=== PATIENT | female | born 1935 | race Caucasian/White ===

== ENCOUNTER 2018-04-15 21:06 | Observation (INO) | payer MEDICARE ==
[~2018-04-15] VITALS: Ht 170.2 cm; Wt 58.4 kg
[~2018-04-15 21:06] MED LIST: BAYER CHEWABLE81 MG PO; PRAVACHOL20 MG PO
[2018-04-15] MEDS ORDERED: TIROSINT50 MCG PO (21:11)
[2018-04-15] MEDS ORDERED: TRIAMTERENE-HCT1 TA1 PO (21:11)
[2018-04-15] MEDS ORDERED: CALCIUM 250+D T1 TAB PO (21:11)
[2018-04-15] MEDS ORDERED: NORCO 7.5/325 T1 TA1 PO (21:12)
[2018-04-15 22:16] LABS: APPEARANCE HAZY (CLEAR); BILIRUBIN NEGATIVE (NEGATIVE); COLOR YELLOW (YELLOW); GLUCOSE NEGATIVE (NEGATIVE); KETONE SMALL mg/dL (NEGATIVE); NITRITE NEGATIVE (NEGATIVE); PROTEIN NEGATIVE (NEGATIVE); SPECIFIC GRAVITY 1.005 (1.005-1.020); UROBILINOGEN NORMAL (NORMAL)
[2018-04-15 22:18] LABS: WHITE CELLS - URINE 0-5 /hpf (0-5)
[2018-04-15 22:19] LABS: BACTERIA FEW /hpf (NONE SEEN)
[2018-04-15 22:36] LABS: BASOPHILS 0.1 % (0-2); EOSINOPHILS 0.9 % (0-7); HEMATOCRIT 35.9 % (36.0-48.0); IMMATURE GRANULOCYTES 0.2 % (0-5); LYMPHOCYTES 12.2 % (15-50); MCH 29.8 pg (26.0-34.0); MCHC 33.4 g/dL (31.0-37.0); MCV 89.1 fL (80.0-100.0); MEAN PLATELET VOLUME 10.1 fL (7.4-10.4); MONOCYTES 7.9 % (2-11); NEUTROPHILS 78.7 % (40-80); PLATELET COUNT 204 10x3/uL (130-400); RBC 4.03 10x6/uL (4.00-5.40); RDW 13.4 % (11.5-14.5); WBC 8.4 10x3/uL (4.8-10.8)
[2018-04-15 22:55] LABS: ALBUMIN 3.2 g/dL (3.4-5.0); ANION GAP 10.4 mmol/L (8-16); BILIRUBIN - TOTAL 1.03 mg/dL (0.2-1.3); CALCIUM 8.9 mg/dL (8.5-10.1); CARBON DIOXIDE 28.2 mmol/L (21.0-32.0); CREATININE - SERUM 1.2 mg/dL (0.6-1.3); POTASSIUM - SERUM 3.6 mmol/L (3.5-5.1); PROTEIN - SERUM 6.7 g/dL (6.4-8.2)
[2018-04-16] MEDS ORDERED: SYNTHROID50 MCG PO (00:12)
[2018-04-16 01:26] VITALS: BP 138/69
[2018-04-16 04:00] VITALS: BP 128/70
[2018-04-16 06:54] LABS: BASOPHILS 0.1 % (0-2); EOSINOPHILS 0.2 % (0-7); HEMATOCRIT 36.4 % (36.0-48.0); HEMOGLOBIN 12.1 g/dL (12-16); IMMATURE GRANULOCYTES 0.3 % (0-5); LYMPHOCYTES 7.1 % (15-50); MCHC 33.2 g/dL (31.0-37.0); MCV 90.1 fL (80.0-100.0); MEAN PLATELET VOLUME 10.4 fL (7.4-10.4); MONOCYTES 4.7 % (2-11); NEUTROPHILS 87.6 % (40-80); PLATELET COUNT 196 10x3/uL (130-400); RBC 4.04 10x6/uL (4.00-5.40); RDW 13.7 % (11.5-14.5); WBC 8.8 10x3/uL (4.8-10.8)
[2018-04-16 07:53] LABS: ALBUMIN 3.3 g/dL (3.4-5.0); ANION GAP 10.6 mmol/L (8-16); BILIRUBIN - TOTAL 0.86 mg/dL (0.2-1.3); CALCIUM 8.7 mg/dL (8.5-10.1); CARBON DIOXIDE 31.8 mmol/L (21.0-32.0); CREATININE - SERUM 1.1 mg/dL (0.6-1.3); MAGNESIUM - SERUM 2.4 mg/dL (1.8-2.4); PHOSPHOROUS 3.8 mg/dL (2.5-4.9); POTASSIUM - SERUM 3.4 mmol/L (3.5-5.1); PROTEIN - SERUM 6.4 g/dL (6.4-8.2)
[2018-04-16 08:30] VITALS: BP 129/66
[2018-04-16 12:01] VITALS: BP 141/70
[2018-04-16 13:39] VITALS: Ht 170.2 cm; Wt 58.4 kg
[2018-04-16 16:14] VITALS: BP 137/70
[2018-04-16 20:00] VITALS: BP 145/67
[2018-04-17] VITALS: BP 120/62
[2018-04-17 04:00] VITALS: BP 136/79
[2018-04-17 07:59] VITALS: BP 141/79
[2018-04-17 11:06] VITALS: BP 145/83
== END 2018-04-17 16:00 | disposition home or self-care (01) ==
LOC: D.ER 21:06 → OBSVTIME 23:23 → D.EDHOLD 23:23 → D.M2 23:23
PROVIDERS: Family Medicine
DX: K56.7 Ileus, unspecified (principal); M54.5 Low back pain; K59.03 Drug induced constipation; T40.605A Adverse effect of unspecified narcotics, initial encounter

== ENCOUNTER 2020-02-06 09:29 | Emergency (ER) | payer MEDICARE, MEDICAID ==
[~2020-02-06] VITALS: Ht 170.2 cm; Wt 59.1 kg
[~2020-02-06 09:29] MED LIST changes: +CALCIUM 250+D T1 TAB PO; +NORCO 7.5/325 T1 TA1 PO; +SYNTHROID50 MCG PO; +TIROSINT50 MCG PO; +TRIAMTERENE-HCT1 TA1 PO
[2020-02-06 09:36] VITALS: Ht 170.2 cm; Wt 59.1 kg
[2020-02-06 10:53] LABS: BASOPHILS 0.3 % (0-2); EOSINOPHILS 0.7 % (0-7); HEMATOCRIT 41.2 % (36.0-48.0); HEMOGLOBIN 13.8 g/dL (12-16); IMMATURE GRANULOCYTES 0.1 % (0-5); MCHC 33.5 g/dL (31.0-37.0); MCV 89.6 fL (80.0-100.0); MEAN PLATELET VOLUME 10.1 fL (7.4-10.4); MONOCYTES 8.8 % (2-11); NEUTROPHILS 81.1 % (40-80); PLATELET COUNT 223 10x3/uL (130-400); RDW 13.5 % (11.5-14.5); WBC 7.4 10x3/uL (4.8-10.8)
[2020-02-06 11:06] LABS: ANION GAP 9.8 mmol/L (8-16); CALCIUM 9.1 mg/dL (8.5-10.1); CARBON DIOXIDE 29.4 mmol/L (21.0-32.0); CREATININE - SERUM 1.5 mg/dL (0.6-1.3); POTASSIUM - SERUM 3.2 mmol/L (3.5-5.1)
[2020-02-06 11:12] LABS: ALBUMIN 3.5 g/dL (3.4-5.0); BILIRUBIN - TOTAL 0.69 mg/dL (0.2-1.3); PROTEIN - SERUM 6.9 g/dL (6.4-8.2)
[2020-02-06 11:47] LABS: INR 0.93 (0.85-1.17); PROTIME 12.4 SECONDS (11.6-15.0)
[2020-02-06] MEDS ORDERED: MIRALAX17 GM PO (12:24)
[2020-02-06] MEDS ORDERED: ULTRAM50 MG PO (12:25)
[2020-02-06 12:31] LABS: BACTERIA FEW /hpf (NEGATIVE); BILIRUBIN NEGATIVE (NEGATIVE); EPITHELIAL CELLS OCC /hpf (0-5); GLUCOSE NEGATIVE (NEGATIVE); KETONE SMALL mg/dL (NEGATIVE); NITRITE NEGATIVE (NEGATIVE); RED CELLS - URINE OCC /hpf (0-5); SPECIFIC GRAVITY 1.015 (1.005-1.020); UROBILINOGEN NORMAL (NORMAL); WHITE CELLS - URINE RARE /hpf (NEGATIVE)
[2020-02-06 13:07] VITALS: BP 180/92
== END 2020-02-06 13:16 | disposition home or self-care (01) ==
LOC: D.ER 09:29
PROVIDERS: Family Medicine
DX: M54.5 Low back pain (principal); S32.049A Unspecified fracture of fourth lumbar vertebra, initial encounter for closed fracture; S22.089A Unspecified fracture of T11-T12 vertebra, initial encounter for closed fracture; W19.XXXA Unspecified fall, initial encounter; Y93.9 Activity, unspecified; Y92.9 Unspecified place or not applicable; M25.551 Pain in right hip; E07.9 Disorder of thyroid, unspecified; I10 Essential (primary) hypertension

== ENCOUNTER 2020-02-07 19:36 | Inpatient (IN) | payer MEDICARE, MEDICAID ==
[~2020-02-07] VITALS: Ht 167.6 cm; Wt 54.1 kg
[~2020-02-07 19:36] MED LIST changes: +MIRALAX17 GM PO; +ULTRAM50 MG PO
--- NOTE | 2020-02-07 20:06 | NUR ---
PATIENT IN WITH C/O CONSTIPATION, WEAKNESS AND BACK PAIN, STATES SHE FELL LAST THURSDAY AND THE PAIN HAS GOTTEN WORSE. NO OBVIOUSE DEFORMITY
[2020-02-07 20:52] LABS: BASOPHILS 0.3 % (0-2); EOSINOPHILS 0.4 % (0-7); HEMATOCRIT 42.7 % (36.0-48.0); HEMOGLOBIN 14.2 g/dL (12-16); IMMATURE GRANULOCYTES 0.3 % (0-5); LYMPHOCYTES 12.9 % (15-50); MCH 30.2 pg (26.0-34.0); MCHC 33.3 g/dL (31.0-37.0); MCV 90.9 fL (80.0-100.0); MEAN PLATELET VOLUME 9.8 fL (7.4-10.4); MONOCYTES 9.4 % (2-11); NEUTROPHILS 76.7 % (40-80); PLATELET COUNT 238 10x3/uL (130-400); WBC 6.9 10x3/uL (4.8-10.8)
--- NOTE | 2020-02-07 20:57 | NUR ---
MEDICATION NOT SCANNED DUE TO COMPUTER NOT WORKING.
[2020-02-07 20:58] LABS: ANION GAP 9.6 mmol/L (8-16); CALCIUM 9.6 mg/dL (8.5-10.1); CARBON DIOXIDE 31.8 mmol/L (21.0-32.0); CREATININE - SERUM 1.7 mg/dL (0.6-1.3); INR 0.93 (0.85-1.17); POTASSIUM - SERUM 3.4 mmol/L (3.5-5.1); PROTIME 12.5 SECONDS (11.6-15.0)
[2020-02-07 21:04] LABS: ALBUMIN 3.6 g/dL (3.4-5.0); BILIRUBIN - TOTAL 0.85 mg/dL (0.2-1.3); PROTEIN - SERUM 7.4 g/dL (6.4-8.2)
--- NOTE | 2020-02-07 22:10 | NUR ---
UNABLE TO SCAN NS IN ROOM, COMPUTER NOT WORKING
--- NOTE | 2020-02-07 22:30 | NUR ---
ADMITTED TO ROOM FROM ER ALERT AND ORIENTIATED, REPORTS FELL AT HOME THURSDAY AND BACK HAS BEEN HURTING EVER SINCE, SEE ASSESSMENT, ORIENTIATED TO ROOM CALL LIGHT IN REACH
[2020-02-08 00:19] VITALS: BP 183/84; BMI 21.0
[2020-02-08 04:32] LABS: BASOPHILS 0.5 % (0-2); EOSINOPHILS 1.4 % (0-7); HEMATOCRIT 39.6 % (36.0-48.0); IMMATURE GRANULOCYTES 0.2 % (0-5); LYMPHOCYTES 15.6 % (15-50); MCH 29.8 pg (26.0-34.0); MCHC 32.8 g/dL (31.0-37.0); MCV 90.8 fL (80.0-100.0); MONOCYTES 11.8 % (2-11); NEUTROPHILS 70.5 % (40-80); PLATELET COUNT 249 10x3/uL (130-400); RBC 4.36 10x6/uL (4.00-5.40); WBC 5.5 10x3/uL (4.8-10.8)
[2020-02-08 04:48] LABS: APTT 34.9 SECONDS (22.8-39.4); INR 0.96 (0.85-1.17); PROTIME 12.7 SECONDS (11.6-15.0)
[2020-02-08 04:53] LABS: CARBON DIOXIDE 31.2 mmol/L (21.0-32.0); CREATININE - SERUM 1.4 mg/dL (0.6-1.3); MAGNESIUM - SERUM 2.1 mg/dL (1.8-2.4); PHOSPHOROUS 4.6 mg/dL (2.5-4.9)
[2020-02-08 04:55] LABS: POTASSIUM - SERUM 4.2 mmol/L (3.5-5.1)
[2020-02-08 06:04] VITALS: BP 172/90
--- NOTE | 2020-02-08 07:57 | NUR ---
PT RESTING QUIETLY IN BED. REPORTS PAIN 4/10 AT THIS TIME. IV TO LEFT WRIST WITH NS @ 75ML/HR INFUSING VIA PUMP. SITE WITHOUT REDNESS OR EDEMA. DENIES FURTHER NEEDS A THIS TIME. CL WITHIN REACH. ENCOURAGED TO CALL WITH NEEDS. CONTINUE POC
[2020-02-08 08:00] VITALS: BP 181/92
--- NOTE | 2020-02-08 10:00 | NUR ---
PT RESTING IN BED READING. NO ACUTE DISTRESS NOTED AT THIS TIME. DENIES FURTHER NEEDS AT THIS TIME. CL WITHIN REACH. ENCOURAGED TO CALL WITH NEEDS.
--- NOTE | 2020-02-08 11:51 | NUR ---
PT RESTING QUIETLY IN BED. RESP EVEN AND UNLABORED. DENIES PAIN OR FURTHER NEEDS AT THIS TIME. CL WITHIN REACH. ENCOURAGED TO CALL WITH NEEDS.
[2020-02-08 12:00] VITALS: BP 158/61
--- NOTE | 2020-02-08 12:43 | NUR ---
PT SITTING UP IN BED READING. NO ACUTE DISTRESS NOTED. CONTINUES TO DENY PAIN AT THIS TIME. DENIES FURTHER NEEDS AT THIS TIME. CL WITHIN REACH. ENCOURAGED TO CALL WITH NEEDS.
[2020-02-08 14:04] VITALS: Ht 167.6 cm; Wt 54.1 kg
--- NOTE | 2020-02-08 14:57 | NUR ---
PT INSTRUCTED ON NEED FOR UA. PT VOICES UNDERSTANDING.
[2020-02-08 16:00] VITALS: BP 149/77
[2020-02-08 16:32] LABS: BILIRUBIN NEGATIVE (NEGATIVE); GLUCOSE NEGATIVE (NEGATIVE); KETONE NEGATIVE (NEGATIVE); NITRITE NEGATIVE (NEGATIVE); UROBILINOGEN NORMAL (NORMAL)
[2020-02-08 20:00] VITALS: BP 149/80
[2020-02-09 04:00] VITALS: BP 164/88
[2020-02-09 04:29] LABS: BASOPHILS 0.4 % (0-2); EOSINOPHILS 3.5 % (0-7); HEMATOCRIT 37.5 % (36.0-48.0); HEMOGLOBIN 12.3 g/dL (12-16); IMMATURE GRANULOCYTES 0.2 % (0-5); LYMPHOCYTES 24.8 % (15-50); MCH 29.9 pg (26.0-34.0); MCHC 32.8 g/dL (31.0-37.0); MONOCYTES 11.5 % (2-11); NEUTROPHILS 59.6 % (40-80); PLATELET COUNT 227 10x3/uL (130-400); RBC 4.12 10x6/uL (4.00-5.40); RDW 13.3 % (11.5-14.5); WBC 5.4 10x3/uL (4.8-10.8)
[2020-02-09 04:43] LABS: ANION GAP 9.1 mmol/L (8-16); CALCIUM 8.3 mg/dL (8.5-10.1); CARBON DIOXIDE 32.5 mmol/L (21.0-32.0); CREATININE - SERUM 1.2 mg/dL (0.6-1.3); POTASSIUM - SERUM 3.6 mmol/L (3.5-5.1)
[2020-02-09 08:00] VITALS: BP 161/84
--- NOTE | 2020-02-09 08:26 | NUR ---
PT RESTING QUIETLY IN BED. RESP EVEN AND UNLABORED. DENIES PAIN THIS AM. IV TO LEFT WRIST WITH NS @ 75ML/HR INFUSING VIA PUMP. SITE WITHOUT REDNESS OR EDEMA. DENIES FURTHER NEEDS AT THIS TIME. CL WITHIN REACH. ENCOURAGED TO CALL WITH NEEDS. CONTINUE POC
[2020-02-09 12:00] VITALS: BP 161/72
[2020-02-09 16:00] VITALS: BP 157/77
[2020-02-09 20:00] VITALS: BP 147/77
[2020-02-10] VITALS: BP 141/75
[2020-02-10 04:00] VITALS: BP 158/62
[2020-02-10 05:14] LABS: BASOPHILS 0.1 % (0-2); EOSINOPHILS 0.3 % (0-7); HEMATOCRIT 37.4 % (36.0-48.0); HEMOGLOBIN 12.2 g/dL (12-16); IMMATURE GRANULOCYTES 0.3 % (0-5); LYMPHOCYTES 9.4 % (15-50); MCH 29.5 pg (26.0-34.0); MCHC 32.6 g/dL (31.0-37.0); MCV 90.3 fL (80.0-100.0); MEAN PLATELET VOLUME 9.6 fL (7.4-10.4); MONOCYTES 9.6 % (2-11); NEUTROPHILS 80.3 % (40-80); PLATELET COUNT 223 10x3/uL (130-400); RBC 4.14 10x6/uL (4.00-5.40); RDW 13.1 % (11.5-14.5)
[2020-02-10 05:28] LABS: WBC 7.9 10x3/uL (4.8-10.8)
[2020-02-10 05:44] LABS: ANION GAP 8.5 mmol/L (8-16); CALCIUM 8.7 mg/dL (8.5-10.1); CARBON DIOXIDE 30.2 mmol/L (21.0-32.0); POTASSIUM - SERUM 3.7 mmol/L (3.5-5.1)
[2020-02-10 08:00] VITALS: BP 169/82
--- NOTE | 2020-02-10 08:41 | NUR ---
PT RESTING QUIETLY IN BED READING A BOOK. RESP EVEN AND UNLABORED. REPORTS PAIN 4/10 AT THIS TIME. PT IS A LITTLE TEARFUL AT TIMES SHE VOICES MISSING CONTACT WITH FAMILY. IV TO LEFT FOREARM WITH NS @ 75/ML/HR INFUSING VIA PUMP. SITE WITHOUT REDNESS OR EDEMA. DENIES FURTHER NEEDS AT THIS TIME. CL WITHIN REACH. ENCOURAGED TO CALL WITH NEEDS. CONTINUE POC
--- NOTE | 2020-02-10 09:26 | NUR ---
REHAB PRESCREENING Rehab referral received and chart reviewed. This patient is awaiting recommendations from Dr. Park. PT has placed this patient on hold. This patient has [facility] and will require an OT evaluation as well when this patient is able. Rehab will continue to follow. Thank you for this referral! Melanie Osborne, CATTLE CARE WORKER Rehab PD
--- NOTE | 2020-02-10 10:53 | NUR ---
STAFF FROM [place] HERE TO FIT PT WITH TLSO BRACE.
[2020-02-10 12:00] VITALS: BP 129/69
[2020-02-10 16:00] VITALS: BP 166/78
--- NOTE | 2020-02-10 16:25 | NUR ---
OT NOTE: PT COMPLETED FACE/HAND HYGIENE WITH SETUP. PT COMPLETED POSITIONING IN BED WITH SBA. [phone] THANK YOU,CARTER MCHUGH
--- NOTE | 2020-02-10 19:45 | NUR ---
PT SITTING UP IN BED WITHOUT DISTRESS, AOX4. IV LEFT FA INFUSING NS @ 75. REFUSES SCDS. PROVIDED ICE WATER. DENIES OTHER NEEDS AT THIS TIME. CL IN REACH, WILL CTM
[2020-02-10 20:00] VITALS: BP 154/77
[2020-02-11] VITALS: BP 176/85
--- NOTE | 2020-02-11 00:58 | NUR ---
PT STATES PAIN IN BACK 04/13, GAVE NORCO ORDERED. DENIES OTHER NEEDS, WILL CYM
[2020-02-11 04:00] VITALS: BP 162/86
[2020-02-11 07:00] VITALS: BP 154/78
[2020-02-11 07:05] LABS: ANION GAP 8.2 mmol/L (8-16); CALCIUM 8.8 mg/dL (8.5-10.1); CARBON DIOXIDE 33.3 mmol/L (21.0-32.0); CREATININE - SERUM 1.2 mg/dL (0.6-1.3); POTASSIUM - SERUM 3.5 mmol/L (3.5-5.1)
[2020-02-11 07:39] LABS: HEMATOCRIT 38.2 % (36.0-48.0); MCH 30.7 pg (26.0-34.0); MCV 90.1 fL (80.0-100.0); MEAN PLATELET VOLUME 9.9 fL (7.4-10.4); NEUTROPHILS 66.5 % (40-80); PLATELET COUNT 234 10x3/uL (130-400); RBC 4.24 10x6/uL (4.00-5.40); RDW 13.4 % (11.5-14.5); WBC 7.8 10x3/uL (4.8-10.8)
[2020-02-11 11:00] VITALS: BP 167/84
--- NOTE | 2020-02-11 11:48 | NUR ---
resting in bed, up with pt in halls, medicated x1 for pain, cont to monitor and awaiting placement, updated family
[2020-02-11 15:00] VITALS: BP 180/88
[2020-02-11 20:01] VITALS: BP 164/79
--- NOTE | 2020-02-11 21:10 | NUR ---
HS MEDICATIONS GIVEN. GAVE MIRALAX MIXED WITH WATER. WILL CONTINUE TO MONITOR FOR NEEDS.
--- NOTE | 2020-02-11 21:20 | NUR ---
ASSISTED PT UP TO RESTROOM...VERY WEAK AND UNSTEADY.
[2020-02-12] VITALS: BP 170/78
[2020-02-12 04:00] VITALS: BP 170/85
[2020-02-12 05:58] LABS: ANION GAP 10.5 mmol/L (8-16); CALCIUM 8.5 mg/dL (8.5-10.1); POTASSIUM - SERUM 3.5 mmol/L (3.5-5.1)
[2020-02-12 06:05] LABS: HEMOGLOBIN 13.1 g/dL (12-16); LYMPHOCYTES 21.7 % (15-50); MCH 30.3 pg (26.0-34.0); MCHC 33.6 g/dL (31.0-37.0); MCV 90.3 fL (80.0-100.0); MEAN PLATELET VOLUME 9.9 fL (7.4-10.4); NEUTROPHILS 67.3 % (40-80); PLATELET COUNT 254 10x3/uL (130-400); RBC 4.32 10x6/uL (4.00-5.40); RDW 13.2 % (11.5-14.5); WBC 6.9 10x3/uL (4.8-10.8)
--- NOTE | 2020-02-12 07:30 | NUR ---
RECEIVED PT FROM MANIFEST CLERK. UPON ENTERING PT IS ALERT AND ORIENTED X4. ROOM AIR, LEFT FOREARM IV THAT IS SALINE LOCKED. HISTORY OF FALLS, T3 AND L4 COMPRESSION FRACTURES, PLANS FOR A KYPHOPLASTY IN THE FUTURE. BED ALARM, YELLOW GOWN AND BLUE SOCKS PER FALL PRECAUTION PROTOCOL. PT IS UP WITH ASSIST. HAS TLSO BRACE, REFUSES TO WEAR IT. FENTANYL PATCH. DENIES ANY NEEDS. BED IN LOWEST POSITION, BED RAILS X2, CALL LIGHT WITHIN REACH. WILL CONTINUE TO MONITOR.
[2020-02-12 08:32] VITALS: BP 126/68
--- NOTE | 2020-02-12 08:54 | NUR ---
ADMINISTERED MORNING MEDICATION, NO DIFFICULTY. SUPPOSITORY FOR CONSTIPATION. NORCO FOR BACK PAIN 04/13. ASSESSMENT PERFORMED AT THIS TIME. HELPED PT AMBULATE TO BATHROOM AND BACK PRIOR TO SUPPOSITORY PLACEMENT. DENIES ANY NEEDS. BED IN LOWEST POSITION, BED RAILS X1, CALL LIGHT WITHIN REACH. WILL CONTINUE TO MONITOR.
--- NOTE | 2020-02-12 09:53 | NUR ---
PT HAS HAD BOWEL MOVEMENT SINCE SUPPOSITORY PLACEMENT.
--- NOTE | 2020-02-12 12:12 | NUR ---
REMOVED FENTANLY PATCH FROM RIGHT SHOULDER AND PLACED NEW ONE ON LEFT SHOULDER. PT UPRIGHT IN BED EATING LUNCH. DENIES ANY NEEDS AT THIS TIME. WILL CONTINUE TO MONITOR.
[2020-02-12 12:40] VITALS: BP 160/94
--- NOTE | 2020-02-12 16:00 | NUR ---
SPOKE WITH PT DAUGHTER REGARDING STATUS. PT STATES SHE LIVES ALONE AND AMBULATES AT HOME WITHOUT ASSIST AND HAS PROVEN THE ABILITY TO DO SO IN HER OWN ROOM AND WITH PHYSICAL THERAPY. DENIES ANY NEEDS. WILL CONTINUE TO MONITOR.
--- NOTE | 2020-02-12 16:40 | NUR ---
I have reviewed this patient and I concur with the Shift Assessment completed by the Licensed Practical Nurse today this shift.
--- NOTE | 2020-02-12 17:27 | NUR ---
ADMINISTERED PRN NORCO FOR BACK PAIN 07/14. PT IS RECLINED IN BED, APPEARS UNCOMFORTABLE AND IN PAIN. DENIES ANY OTHER COMFORT MEASURES. WILL CONTINUE TO MONITOR.
[2020-02-12 17:37] VITALS: BP 178/93
--- NOTE | 2020-02-12 19:00 | NUR ---
BEDSIDE REPORT RECEIVED AND CARE OF PT ASSUMED. PT LYING IN LOW DEL CID'S POSITION WITH EYES CLOSED. IV TO LEFT FA SALINE LOCKED. WILL MONITOR FOR NEEDS.
[2020-02-12 20:01] VITALS: BP 188/89
--- NOTE | 2020-02-12 20:53 | NUR ---
HS MEDICATIONS GIVEN. WILL CONTINUE TO MONITOR FOR NEEDS.
[2020-02-13] VITALS: BP 178/90
[2020-02-13 04:00] VITALS: BP 180/84
[2020-02-13 04:56] LABS: CALCIUM 8.9 mg/dL (8.5-10.1); CARBON DIOXIDE 30.1 mmol/L (21.0-32.0); POTASSIUM - SERUM 3.1 mmol/L (3.5-5.1)
[2020-02-13 05:05] LABS: LYMPHOCYTES 18.6 % (15-50); MCHC 33.3 g/dL (31.0-37.0); MCV 89.9 fL (80.0-100.0); MEAN PLATELET VOLUME 9.5 fL (7.4-10.4); NEUTROPHILS 69.3 % (40-80); PLATELET COUNT 266 10x3/uL (130-400); RBC 4.34 10x6/uL (4.00-5.40); RDW 13.3 % (11.5-14.5); WBC 7.8 10x3/uL (4.8-10.8)
[2020-02-13 08:07] VITALS: BP 151/79
--- NOTE | 2020-02-13 08:31 | NUR ---
PT LYING IN BED, NO S/SX OF DISTRESS, BED IN LOWEST POSITION, CL IN REACH, IV IN LT FA SL, BED ALARM ON, PT HAS TLSO BRACE REFUSED TO WEAR. NO NEEDS AT THIS TIME CONTINUE WITH PLAN OF CARE
--- NOTE | 2020-02-13 09:36 | NUR ---
I have reviewed this patient and I concur with the Shift Assessment completed by the Licensed Practical Nurse today this shift.
--- NOTE | 2020-02-13 09:41 | NUR ---
PT LYING IN BED, ADMINISTERED SCHEDULED MEDICATIONS WELL PRN TO PT, PT INQUIRED ON PLAN OF CARE TODAY AND IF ANYTHING HAS CHANGED, EXPLAINED THAT WE ARE STILL WAITING ON DR TO MAKE ROUNDS TO SEE WHAT AND IF ANY PLANS HAVE CHANGED, PT VERBALIZED UNDERSTANDING,CONTINUE WITH PLAN OF CARE
--- NOTE | 2020-02-13 10:44 | NUR ---
AFTER PT WAS GIVEN K+ FOR EP PT K+ IS 3.8 AFTER REDRAW, NO OTHER NEEDS VOICED BY PT AT THIS TIME, CONTINUE WITH PLAN OF CARE
[2020-02-13 11:50] VITALS: BP 144/74
--- NOTE | 2020-02-13 12:57 | NUR ---
PT WAS GIEVN BATH ABOUT 11 AND REQUESTED PAIN MEDICATION, INFORMED PT THAT HER PRN MEDICATION WAS GIVEN WITH MORNING MEDS AND TOO EARLY FOR ME TO ADMINISTER MEDICATION, NURSE PRACTIONER CAME AND PLACED ORDER FOR ONE TIME DOSE OF TRAMADOL, ADMNISTERED SCHEDULED MED AND PT STATED PAIN AT A 10 FROM 0-10, WILL REASSESS PT AFTER A BIT. NO OTHER NEEDS VOICED AT THIS TIME, CL IN REACH CONTINUE WITH PLAN OF CARE
--- NOTE | 2020-02-13 13:30 | NUR ---
Nutrition follow-up: Diet: Regular PO intake ~90% average of meals Labs reviewed +BM Wt: 129# PO intake remains good at this time Awaiting rehab RDN following.
--- NOTE | 2020-02-13 13:34 | MORECARE ---
CASE MANAGEMENT DISCHARGE SUMMARY PATIENT: GINGER BENSON UNIT: [id number] ADM DATE: 02/07/20 AGE: 85 : 33 SEX: F ROOM/BED: D.2239 AUTHOR: HIRADOC PHYSICIAN: REFERRING PHYSICIAN: SAHARA LOVE MD DATE OF SERVICE: 02/13/20 Discharge Plan Patient Name: GINGER BENSON Facility: [facility]:[place] : 1935 Planned Disposition: Inpatient Rehab Anticipated Discharge Date: Discharge Date: Expected LOS: Initial Reviewer: [id number] Initial Review Date: 02/13/2020 Generated: 02/13/20 2:34 pm Comments DCP- Discharge Planning Updated by [email or web address]: Coreen Pina on 02/13/20 12:[address] Patient Name: GINGER BENSON Admission Status: ER Accout number: [id number] Admission Date: 02-07-2020 : 1935 Admission Diagnosis:DORSALGIA, UNSPECIFIED Attending: SAHARA LOVE Current LOS: 6 Anticipated DC Date: Planned Disposition: Inpatient Rehab Primary Insurance: [employer] ADV Discharge Planning Comments: CM met with patient at bedside after explaining CM role and obtaining verbal consent. CM discussed availability / needs of home health, REHAB and medical equipment. STEVE SIGNED FOR IPRH AND IMM SIGNED. CM TO FOLLOW AND ASSIST NEEDED. Kiln Car Unloader: Coreen Pina DCPIA - Discharge Planning Initial Assessment Updated by [id number]: Coreen Pina on 02/13/20 1:31 pm * Is the patient Alert and Oriented? Yes Coverage Notice Reviewer: [email or web address] Pina Notice Issued Date-Time: 02/13/2020 13:32 Notice Type: IM Discharge Notice Notice Delivered To: Patient Relationship to Patient: Computer Systems Hardware Analyst Name: Delivery Method: HAND - Hand Delivered Shy Days: Prior Verbal Notification: Recipient Understood Notice: Yes Recipient Signature: Yes Med Rec Note Co-signed by Attending: Coverage Notice Comment: Reviewer: [id number] John Pina Notice Issued Date-Time: 02/13/2020 13:32 Notice Type: Patient Choice Letter Notice Delivered To: Patient Relationship to Patient: Computer Systems Hardware Analyst Name: Delivery Method: HAND - Hand Delivered Shy Days: Prior Verbal Notification: Recipient Understood Notice: Yes Recipient Signature: Yes Med Rec Note Co-signed by Attending: Coverage Notice Comment: [facility] Patient Name: GINGER BENSON Page [phone] at 1334 All edits/amendments must be made on the electronic document DICTATION DATE: 02/13/201333 TEACHER OF THE SIGHT IMPAIRED: YANN 02/13/20 1334 RPT#: [id number] DC DATE: STATUS: ADM IN [facility] [address] [place] [address] END OF REPORT
--- NOTE | 2020-02-13 16:04 | NUR ---
OT NOTE: PT REQUIRED MAX A TO LUCIANO/DOFF BACK BRACE. PT COMPLETED SUPINE TO SIT WITH SBA. PT COMPLETED SIT TO STAND WITH CGA. PT COMPLETED FACE HYGIENE AT EOB WITH SETUP. [phone] THANK YOU,VIVIANE LAI
[2020-02-13 16:06] VITALS: BP 143/77
--- NOTE | 2020-02-13 19:00 | NUR ---
BEDSIDE REPORT RECEIVED AND CARE OF PT ASSUMED. PT LYING IN HIGH DEL CID'S POSITION. STATES NO PAIN AT THIS TIME. IV TO LEFT FA SALINE LOCKED. BED ALARM IN PLACE. WILL MONITOR FOR NEEDS.
[2020-02-13 19:38] VITALS: BP 180/92
--- NOTE | 2020-02-13 20:00 | NUR ---
HS MEDICATIONS GIVEN TO INCLUDE NORCO PER REQUEST FOR PAIN. WILL CONTINUE TO MONITOR FOR NEEDS.
[2020-02-14 00:10] VITALS: BP 180/80
[2020-02-14 04:00] VITALS: BP 165/79
[2020-02-14 04:48] LABS: HEMOGLOBIN 12.6 g/dL (12-16); LYMPHOCYTES 20.8 % (15-50); MCHC 33.2 g/dL (31.0-37.0); MCV 90.5 fL (80.0-100.0); MEAN PLATELET VOLUME 9.9 fL (7.4-10.4); NEUTROPHILS 65.4 % (40-80); PLATELET COUNT 258 10x3/uL (130-400); RDW 13.6 % (11.5-14.5); WBC 5.9 10x3/uL (4.8-10.8)
[2020-02-14 05:02] LABS: ALBUMIN 2.9 g/dL (3.4-5.0); ANION GAP 11.1 mmol/L (8-16); BILIRUBIN - TOTAL 0.58 mg/dL (0.2-1.3); CALCIUM 8.7 mg/dL (8.5-10.1); CARBON DIOXIDE 30.5 mmol/L (21.0-32.0); POTASSIUM - SERUM 3.6 mmol/L (3.5-5.1)
[2020-02-14 09:03] VITALS: BP 162/85
--- NOTE | 2020-02-14 11:28 | NUR ---
I have reviewed this patient and I concur with the Shift Assessment completed by the Licensed Practical Nurse today this shift.
--- NOTE | 2020-02-14 12:22 | NUR ---
ASSISTED PT FROM BATHROOM BACK TO BED AND PT STATED SHE NEEDED PAIN MEDICATION. PT STATED HER PAIN GETS BAD WHEN SHE MOVES, TOO SOON FOR PT TO HAVE CHRISTINA, ADMINISTERED PRN TRAMADOL FOR PT. NO OTHER NEEDS AT THIS TIME, CONTINUE WITH PLAN OF CARE
[2020-02-14 12:48] VITALS: BP 153/71
--- NOTE | 2020-02-14 14:32 | NUR ---
Buttocks with blanchable redness. Pt is up ambulating in room. Wound care monitoring as needed.
--- NOTE | 2020-02-14 14:44 | NUR ---
Rehab Note- Spoke with Kamala pastor/ Ronny on behalf of [facility] and the patient's case is still under review. Stated she will escalate the patient's case. Will continue to await determination for possible inpatient acute rehab stay. Thank you for this referral! Kinga Ramirez RN Clinical Liaison, [facility] Rehab
--- NOTE | 2020-02-14 14:48 | NUR ---
PT AMBULATING WITH PT, CAME BACK TO BED AND STATED SHE WAS AT A 7/10 IN PAIN, ADMINISTERED PRN PAIN MEDICATION. NO OTHER NEEDS AT THIS TIME, CONTINUE WITH PLAN OF CARE
--- NOTE | 2020-02-14 15:00 | NUR ---
OT NOTE: BED MOB WITH SPV; THERAPIST APPLIED TLSO. PT ABLE TO AMB GREATER THAN 175 FT WITH WALKER TO IMPROVE STRENGTH AND ENDURANCE, HOWEVER, UPON RETURN TO ROOM , PT WAS VERY FATIGUED. ABLE TO PERFORM TOILETING WITH CGA; ABLE TO LUCIANO AND DOFF GOWN WITH MIN ASSIST. ASSISTED PT BACK TO BED AND REMOVED TLSO. PT WITH SEVERE PAIN REPORTED. STATES THAT THE PAIN IS WORSE WHEN BRACE IS REMOVED, HOWEVER, PT DID NOT WANT TO KEEP IT ON. SHAKING WITH PAIN. NURSING NOTIFIED. PT FRUSTRATED BECAUSE SHE STATES THAT PAIN IS NOT GETTING ANY BETTER. ALVARO NAVARRETE, OTR/L [phone]
--- NOTE | 2020-02-14 16:02 | NUR ---
OT NOTE: PT COMPLETED FACE AND HAND HYGIENE WITH SETUP. PT COMPLETED ORAL HYGIENE WITH MIN A. PT COMPLETED UE AROM AXS WITH FUNCTIONAL TASKS. [phone] THANK YOU,VIVIANE LAI
--- NOTE | 2020-02-14 16:24 | MORECARE ---
CASE MANAGEMENT DISCHARGE SUMMARY PATIENT: GIGNER BENSON UNIT: [id number] ADM DATE: 02/07/20 AGE: 85 : 33 SEX: F ROOM/BED: D.2239 AUTHOR: HIRADOC PHYSICIAN: REFERRING PHYSICIAN: SAHARA LOVE MD DATE OF SERVICE: 02/14/20 Discharge Plan Patient Name: GINGER BENSON Facility: [facility]:[place] : 1935 Planned Disposition: Inpatient Rehab Anticipated Discharge Date: Discharge Date: Expected LOS: Initial Reviewer: [email or web address] Initial Review Date: 02/13/2020 Generated: 02/14/20 5:23 pm Comments DCP- Discharge Planning Updated by [id number]: Coreen Pina on 02/14/20 3:[address] Patient Name: GINGER BENSON Admission Status: ER Accout number: [id number] Admission Date: 02-07-2020 : 1935 Admission Diagnosis:DORSALGIA, UNSPECIFIED Attending: SAHARA LOVE Current LOS: 7 Anticipated DC Date: Planned Disposition: Inpatient Rehab Primary Insurance: [employer] ADV Discharge Planning Comments: [facility] WAITING INSURANCE AUTH. I SPOKE TO PATIENT SON ERIN AND UPDATED HIM ON WHATS GOING ON. Yoga Instructor: Coreen Pina DCP- Discharge Planning Updated by [id number]: Coreen Pina on 02/13/20 12:[address] Patient Name: GINGER BENSON Admission Status: ER Accout number: [id number] Admission Date: 02-07-2020 : 1935 Admission Diagnosis:DORSALGIA, UNSPECIFIED Attending: SAHARA LOVE Current LOS: 6 Anticipated DC Date: Planned Disposition: Inpatient Rehab Primary Insurance: [employer] ADV Discharge Planning Comments: CM met with patient at bedside after explaining CM role and obtaining verbal consent. CM discussed availability / needs of home health, REHAB and medical equipment. STEVE SIGNED FOR IPRH AND IMM SIGNED. CM TO FOLLOW AND ASSIST NEEDED. Yoga Instructor: Coreen Pina DCPIA - Discharge Planning Initial Assessment Updated by [id number]: Coreen Pina on 02/13/20 1:31 pm * Is the patient Alert and Oriented? Yes Coverage Notice Reviewer: [id number] John Pina Notice Issued Date-Time: 02/13/2020 13:32 Notice Type: IM Discharge Notice Notice Delivered To: Patient Relationship to Patient: Icing Mixer Name: Delivery Method: HAND - Hand Delivered Shy Days: Prior Verbal Notification: Recipient Understood Notice: Yes Recipient Signature: Yes Med Rec Note Co-signed by Attending: Coverage Notice Comment: Reviewer: [id number] John Pina Notice Issued Date-Time: 02/13/2020 13:32 Notice Type: Patient Choice Letter Notice Delivered To: Patient Relationship to Patient: Icing Mixer Name: Delivery Method: HAND - Hand Delivered Shy Days: Prior Verbal Notification: Recipient Understood Notice: Yes Recipient Signature: Yes Med Rec Note Co-signed by Attending: Coverage Notice Comment: NATALIIA Last DP export: 02/13/20 12:34 p Patient Name: GINGER BENSON Page [phone] at 1624 All edits/amendments must be made on the electronic document DICTATION DATE: 02/14/201622 ALBACORE FISHING BOAT CREWMAN: YANN 02/14/20 162 RPT#: [id number] DC DATE: STATUS: ADM IN [facility] [address] [place] [address] END OF REPORT
[2020-02-14 17:39] VITALS: BP 167/87
--- NOTE | 2020-02-14 21:00 | NUR ---
PT SITTING UP IN BED WITHOUT DISTRESS, AOX4. READING BOOK. STATES PAIN IS "OK" UNLESS SHE MOVES AROUND. NORCO GIVEN WITH HS MEDS. BED ALARM ON. DENIES OTHER NEEDS. CL IN REACH, WILL CTM
[2020-02-14 21:06] VITALS: BP 182/88
[2020-02-15 00:55] VITALS: BP 176/86
[2020-02-15 04:52] LABS: BASOPHILS 0.3 % (0-2); EOSINOPHILS 2.9 % (0-7); HEMATOCRIT 39.5 % (36.0-48.0); HEMOGLOBIN 12.8 g/dL (12-16); IMMATURE GRANULOCYTES 0.2 % (0-5); LYMPHOCYTES 18.4 % (15-50); MCH 29.8 pg (26.0-34.0); MCHC 32.4 g/dL (31.0-37.0); MCV 92.1 fL (80.0-100.0); MEAN PLATELET VOLUME 9.9 fL (7.4-10.4); MONOCYTES 9.3 % (2-11); NEUTROPHILS 68.9 % (40-80); PLATELET COUNT 276 10x3/uL (130-400); RBC 4.29 10x6/uL (4.00-5.40); RDW 13.7 % (11.5-14.5); WBC 6.3 10x3/uL (4.8-10.8)
[2020-02-15 05:20] LABS: ALBUMIN 3.1 g/dL (3.4-5.0); ANION GAP 8.9 mmol/L (8-16); BILIRUBIN - TOTAL 0.58 mg/dL (0.2-1.3); CALCIUM 8.9 mg/dL (8.5-10.1); CARBON DIOXIDE 30.6 mmol/L (21.0-32.0); CREATININE - SERUM 1.1 mg/dL (0.6-1.3); POTASSIUM - SERUM 3.5 mmol/L (3.5-5.1); PROTEIN - SERUM 6.3 g/dL (6.4-8.2)
[2020-02-15 06:10] VITALS: BP 171/83
--- NOTE | 2020-02-15 07:15 | NUR ---
ALERT AND ORIENTED, RESTING IN BED WITH EYES OPEN. NO C/O PAIN. NO S/S OF ACUTE DISTRESS NOTED. UP WITH ASSIST. TLSO BRACE. [place] ALARM ON. AWAITING REHAB PLACEMENT. IV TO LEFT FOREARM, SL. REFUSED FLUIDS. SITE PATENT WITHOUT REDNESS OR SWELLING. DENIES ANY NEEDS AT THIS TIME. CALL LIGHT IN REACH. WILL CONTINUE TO MONITOR.
[2020-02-15 08:00] VITALS: BP 164/84
[2020-02-15 12:00] VITALS: BP 156/71
[2020-02-15 13:42] LABS: BACTERIA FEW /hpf (NEGATIVE); BILIRUBIN NEGATIVE (NEGATIVE); EPITHELIAL CELLS 0-5 /hpf (0-5); GLUCOSE NEGATIVE (NEGATIVE); KETONE NEGATIVE (NEGATIVE); NITRITE NEGATIVE (NEGATIVE); RED CELLS - URINE RARE /hpf (0-5); SPECIFIC GRAVITY 1.015 (1.005-1.020); UROBILINOGEN 4 mg/dL (NORMAL); WHITE CELLS - URINE 0-5 /hpf (NEGATIVE)
[2020-02-15 16:00] VITALS: BP 165/76
--- NOTE | 2020-02-15 16:06 | NUR ---
Rehab Note- Spoke with Nilesh Flores with [facility] on behalf of [facility] and stated that the patient PreAuth was still under review and she saw where it had been expidited and that she was sending an email to the medical review because she did not understand why it was taking so long. Continue to await for determination for possible acute inpatient acute rehab stay. Kinga Ramirez RN Clinical Liaison, [facility] Rehab
--- NOTE | 2020-02-15 18:00 | NUR ---
OT NOTE: PT COMPLETED LUCIANO/DOFF BACK BRACE WITH TOTAL A. PT COMPLETED SIT TO STAND WITH SBA. PT COMPLETED ADL MOB WITH RW REQUIRED CGA. PT COMPLETED ORAL HYGIENE WITH SET UP. [id number] THANK YOU,VIVIANE LAI
--- NOTE | 2020-02-15 18:23 | NUR ---
ALERT AND ORIENTED, RESTING IN BED READING A BOOK. NO C/O PAIN. NO S/S OF ACUTE DISTRESS NOTED. DENIES ANY NEEDS AT THIS TIME. CALL LIGHT IN REACH. WILL CONTINUE TO MONITOR.
--- NOTE | 2020-02-15 20:00 | NUR ---
PT SITTING UP IN BED WITHOUT DISTRESS, AOX4. DENIES NEEDS AT THIS TIME. CL IN REACH, WILL CTM
[2020-02-15 21:08] VITALS: BP 161/73
[2020-02-16 01:23] VITALS: BP 143/71
[2020-02-16 04:23] LABS: BASOPHILS 0.7 % (0-2); EOSINOPHILS 3.2 % (0-7); HEMATOCRIT 36.7 % (36.0-48.0); HEMOGLOBIN 11.8 g/dL (12-16); IMMATURE GRANULOCYTES 0.2 % (0-5); LYMPHOCYTES 20.6 % (15-50); MCH 29.4 pg (26.0-34.0); MCHC 32.2 g/dL (31.0-37.0); MCV 91.3 fL (80.0-100.0); MEAN PLATELET VOLUME 10.1 fL (7.4-10.4); MONOCYTES 10.3 % (2-11); PLATELET COUNT 266 10x3/uL (130-400); RBC 4.02 10x6/uL (4.00-5.40); RDW 13.7 % (11.5-14.5)
[2020-02-16 04:48] LABS: ALBUMIN 2.9 g/dL (3.4-5.0); ANION GAP 8.7 mmol/L (8-16); BILIRUBIN - TOTAL 0.44 mg/dL (0.2-1.3); CALCIUM 8.4 mg/dL (8.5-10.1); CARBON DIOXIDE 29.7 mmol/L (21.0-32.0); CREATININE - SERUM 1.1 mg/dL (0.6-1.3); POTASSIUM - SERUM 3.4 mmol/L (3.5-5.1); PROTEIN - SERUM 5.8 g/dL (6.4-8.2)
[2020-02-16 06:58] VITALS: BP 162/74
--- NOTE | 2020-02-16 07:10 | NUR ---
ALERT AND ORIENTED, RESTING IN BED WITH EYES OPEN. NO C/O PAIN. NO S/S OF ACUTE DISTRESS NOTED. UP WITH STANDBY ASSIST. TLSO BRACE AT BEDSIDE. IV TO LEFT FOREARM, SL. SITE PATENT WITHOUT REDNESS OR SWELLING. FENTANYL PATCH TO RIGHT SCAPULA. DENIES ANY NEEDS AT THIS TIME. CALL LIGHT IN REACH. WILL CONTINUE TO MONITOR.
[2020-02-16 08:00] VITALS: BP 130/65
--- NOTE | 2020-02-16 11:35 | MORECARE ---
CASE MANAGEMENT DISCHARGE SUMMARY PATIENT: GINGER BENSON UNIT: [id number] ADM DATE: 02/07/20 AGE: 85 : 33 SEX: F ROOM/BED: D.2239 AUTHOR: ARNOLD INIGUEZ PHYSICIAN: REFERRING PHYSICIAN: SAHARA LOVE MD DATE OF SERVICE: 02/16/20 Discharge Plan Patient Name: GINGER BENSON Facility: [facility]:[place] : 1935 Planned Disposition: Inpatient Rehab Anticipated Discharge Date: Discharge Date: Expected LOS: Initial Reviewer: [id number] Initial Review Date: 02/13/2020 Generated: 02/16/20 12:34 pm Comments DCP- Discharge Planning Updated by [id number]: Coreen Pina on 02/16/20 10:[address] Patient Name: GINGER BENSON Admission Status: ER Accout number: [id number] Admission Date: 02-07-2020 : 1935 Admission Diagnosis:DORSALGIA, UNSPECIFIED Attending: SAHARA LOVE Current LOS: 9 Anticipated DC Date: Planned Disposition: Inpatient Rehab Primary Insurance: [employer] ADV Discharge Planning Comments: CM SPOKE WITH GINNA KHAN AND HE STATES WOULD LIKE MOM TO COME HOME WITH AND TRY TO GET SURGERY SCHEDULED FOR NEXT WEEK WITH DR. GOMES. CM TO FOLLOW AND ASSIST. Gis Instructor: Coreen Pina DCP- Discharge Planning Updated by [id number]: Coreen Pina on 02/14/20 3:[address] Patient Name: GINGER BENSON Admission Status: ER Accout number: [id number] Admission Date: 02-07-2020 : 1935 Admission Diagnosis:DORSALGIA, UNSPECIFIED Attending: SAHARA LOVE Current LOS: 7 Anticipated DC Date: Planned Disposition: Inpatient Rehab Primary Insurance: [employer] ADV Discharge Planning Comments: [facility] WAITING INSURANCE AUTH. I SPOKE TO PATIENT GINNA KHAN AND UPDATED HIM ON WHATS GOING ON. Gis Instructor: Coreen Pina DCP- Discharge Planning Updated by [id number]: Coreen Pina on 02/13/20 12:[address] Patient Name: GINGER BENSON Admission Status: ER Accout number: [id number] Admission Date: 02-07-2020 : 1935 Admission Diagnosis:DORSALGIA, UNSPECIFIED Attending: SAHARA LOVE Current LOS: 6 Anticipated DC Date: Planned Disposition: Inpatient Rehab Primary Insurance: [employer] ADV Discharge Planning Comments: CM met with patient at bedside after explaining CM role and obtaining verbal consent. CM discussed availability / needs of home health, REHAB and medical equipment. STEVE SIGNED FOR IPR[facility] AND IMM SIGNED. CM TO FOLLOW AND ASSIST NEEDED. Gis Instructor: Coreen Pina DCPIA - Discharge Planning Initial Assessment Updated by [id number]: Coreen Pina on 02/13/20 1:31 pm * Is the patient Alert and Oriented? Yes Coverage Notice Reviewer: [id number] John Pina Notice Issued Date-Time: 02/13/2020 13:32 Notice Type: IM Discharge Notice Notice Delivered To: Patient Relationship to Patient: Inspector Clip On Sunglasses Name: Delivery Method: HAND - Hand Delivered Shy Days: Prior Verbal Notification: Recipient Understood Notice: Yes Recipient Signature: Yes Med Rec Note Co-signed by Attending: Coverage Notice Comment: Reviewer: [id number] John Pina Notice Issued Date-Time: 02/13/2020 13:32 Notice Type: Patient Choice Letter Notice Delivered To: Patient Relationship to Patient: Inspector Clip On Sunglasses Name: Delivery Method: HAND - Hand Delivered Shy Days: Prior Verbal Notification: Recipient Understood Notice: Yes Recipient Signature: Yes Med Rec Note Co-signed by Attending: Coverage Notice Comment: [facility] Last DP export: 02/14/20 3:24 p Patient Name: GINGER BENSON Page [phone] at 1135 All edits/amendments must be made on the electronic document DICTATION DATE: 02/16/20 1134 LAND SURVEYING MANAGER: YANN 02/16/20 1134 RPT#: [id number] DC DATE: STATUS: ADM IN [facility] [address] [place] [address] END OF REPORT
--- NOTE | 2020-02-16 11:42 | MORECARE ---
CASE MANAGEMENT DISCHARGE SUMMARY PATIENT: GINGER BENSON UNIT: [id number] ADM DATE: 02/07/20 AGE: 85 : 33 SEX: F ROOM/BED: D.2239 AUTHOR: ARNOLD INIGUEZ PHYSICIAN: REFERRING PHYSICIAN: SAHARA LOVE MD DATE OF SERVICE: 02/16/20 Discharge Plan Patient Name: GINGER BENSON Facility: [facility]:[place] : 1935 Planned Disposition: Inpatient Rehab Anticipated Discharge Date: Discharge Date: Expected LOS: Initial Reviewer: [id number] Initial Review Date: 02/13/2020 Generated: 02/16/20 12:41 pm Comments DCP- Discharge Planning Updated by [id number]: Coreen Pina on 02/16/20 10:[address] Patient Name: GINGER BENSON Admission Status: ER Accout number: [id number] Admission Date: 02-07-2020 : 1935 Admission Diagnosis:DORSALGIA, UNSPECIFIED Attending: SAHARA LOVE Current LOS: 9 Anticipated DC Date: Planned Disposition: Inpatient Rehab Primary Insurance: [employer] ADV Discharge Planning Comments: CM SPOKE WITH GINNA KHAN AND HE STATES WOULD LIKE MOM TO COME HOME WITH AND TRY TO GET SURGERY SCHEDULED FOR NEXT WEEK WITH DR. GOMES. CM TO FOLLOW AND ASSIST. Truss Driver Helper: Coreen Pina DCP- Discharge Planning Updated by [id number]: Coreen Pina on 02/14/20 3:[address] Patient Name: IGNGER BENSON Admission Status: ER Accout number: [id number] Admission Date: 02-07-2020 : 1935 Admission Diagnosis:DORSALGIA, UNSPECIFIED Attending: SAHARA LOVE Current LOS: 7 Anticipated DC Date: Planned Disposition: Inpatient Rehab Primary Insurance: [employer] ADV Discharge Planning Comments: [facility] WAITING INSURANCE AUTH. I SPOKE TO PATIENT GINNA KHAN AND UPDATED HIM ON WHATS GOING ON. Truss Driver Helper: Coreen Pina DCP- Discharge Planning Updated by [id number]: Coreen Pina on 02/13/20 12:[address] Patient Name: GNIGER BENSON Admission Status: ER Accout number: [id number] Admission Date: 02-07-2020 : 1935 Admission Diagnosis:DORSALGIA, UNSPECIFIED Attending: SAHARA LOVE Current LOS: 6 Anticipated DC Date: Planned Disposition: Inpatient Rehab Primary Insurance: [employer] ADV Discharge Planning Comments: CM met with patient at bedside after explaining CM role and obtaining verbal consent. CM discussed availability / needs of home health, REHAB and medical equipment. STEVE SIGNED FOR [facility] AND IMM SIGNED. CM TO FOLLOW AND ASSIST NEEDED. Truss Driver Helper: Coreen Pina DCPIA - Discharge Planning Initial Assessment Updated by [email or web address]: Coreen Pina on 02/13/20 1:31 pm * Is the patient Alert and Oriented? Yes External Providers External Provider: [facility] Next Contact Date: Service Request Date: Service Type: Resolution: Reviewer: Comments: Coverage Notice Reviewer: [id number] Pina Notice Issued Date-Time: 02/13/2020 13:32 Notice Type: IM Discharge Notice Notice Delivered To: Patient Relationship to Patient: Therapy Administrative Assistant Name: Delivery Method: HAND - Hand Delivered Shy Days: Prior Verbal Notification: Recipient Understood Notice: Yes Recipient Signature: Yes Med Rec Note Co-signed by Attending: Coverage Notice Comment: Reviewer: [id number] John Pina Notice Issued Date-Time: 02/13/2020 13:32 Notice Type: Patient Choice Letter Notice Delivered To: Patient Relationship to Patient: Therapy Administrative Assistant Name: Delivery Method: HAND - Hand Delivered Shy Days: Prior Verbal Notification: Recipient Understood Notice: Yes Recipient Signature: Yes Med Rec Note Co-signed by Attending: Coverage Notice Comment: [facility] Last DP export: 02/16/20 10:35 a Patient Name: GINGER BENSON Page [id number] at 1142 All edits/amendments must be made on the electronic document DICTATION DATE: 02/16/20 1141 EMERGENCY MEDICAL DISPATCHER: YANN 02/16/20 1141 RPT#: [id number] DC DATE: STATUS: ADM IN [facility] [address] [place] [address] END OF REPORT
--- NOTE | 2020-02-16 11:56 | MORECARE ---
CASE MANAGEMENT DISCHARGE SUMMARY PATIENT: GINGER BENSON UNIT: [id number] ADM DATE: 02/07/20 AGE: 85 : 33 SEX: F ROOM/BED: D.2239 AUTHOR: ARNOLD INIGUEZ PHYSICIAN: REFERRING PHYSICIAN: SAHARA LOVE MD DATE OF SERVICE: 02/16/20 Discharge Plan Patient Name: GINGER BENSON Facility: [facility]:[place] : 1935 Planned Disposition: Inpatient Rehab Anticipated Discharge Date: Discharge Date: Expected LOS: Initial Reviewer: [id number] Initial Review Date: 02/13/2020 Generated: 02/16/20 12:55 pm Comments DCP- Discharge Planning Updated by [id number]: Coreen Pina on 02/16/20 10:[address] Patient Name: GINGER BENSON Admission Status: ER Accout number: [id number] Admission Date: 02-07-2020 : 1935 Admission Diagnosis:DORSALGIA, UNSPECIFIED Attending: SAHARA LOVE Current LOS: 9 Anticipated DC Date: Planned Disposition: Inpatient Rehab Primary Insurance: [employer] ADV Discharge Planning Comments: CM SPOKE WITH GINNA KHAN AND HE STATES WOULD LIKE MOM TO COME HOME WITH HH AND TRY TO GET SURGERY SCHEDULED FOR NEXT WEEK WITH DR. GOMES. CM TO FOLLOW AND ASSIST. Coupon Manifest Clerk: Coreen Pina Appended by Coreen Pina on 02/16/2020 11:52 CDT: STEVE FOR [facility] AND IMM SIGNED. DCP- Discharge Planning Updated by [email or web address]: Coreen Pina on 02/14/20 3:[address] Patient Name: GINGER BENSON Admission Status: ER Accout number: [id number] Admission Date: 02-07-2020 : 1935 Admission Diagnosis:DORSALGIA, UNSPECIFIED Attending: SAHARA LOVE Current LOS: 7 Anticipated DC Date: Planned Disposition: Inpatient Rehab Primary Insurance: [employer] ADV Discharge Planning Comments: [facility] WAITING INSURANCE AUTH. I SPOKE TO PATIENT GINNA KHAN AND UPDATED HIM ON WHATS GOING ON. Coupon Manifest Clerk: Coreen Pina DCP- Discharge Planning Updated by [id number]: Coreen Pina on 02/13/20 12:[address] Patient Name: GINGER BENSON Admission Status: ER Accout number: [id number] Admission Date: 02-07-2020 : 1935 Admission Diagnosis:DORSALGIA, UNSPECIFIED Attending: SAHARA LOVE Current LOS: 6 Anticipated DC Date: Planned Disposition: Inpatient Rehab [facility] Discharge Planning Comments: CM met with patient at bedside after explaining CM role and obtaining verbal consent. CM discussed availability / needs of home health, REHAB and medical equipment. STEVE SIGNED FOR [facility] AND IMM SIGNED. CM TO FOLLOW AND ASSIST NEEDED. Coupon Manifest Clerk: Coreen Pina DCPIA - Discharge Planning Initial Assessment Updated by [email or web address]: Coreen Pina on 02/13/20 1:31 pm * Is the patient Alert and Oriented? Yes Coverage Notice Reviewer: [id number] John Pina Notice Issued Date-Time: 02/13/2020 13:32 Notice Type: IM Discharge Notice Notice Delivered To: Patient Relationship to Patient: Chemistry Technician Name: Delivery Method: HAND - Hand Delivered Shy Days: Prior Verbal Notification: Recipient Understood Notice: Yes Recipient Signature: Yes Med Rec Note Co-signed by Attending: Coverage Notice Comment: Reviewer: [id number] John Pina Notice Issued Date-Time: 02/13/2020 13:32 Notice Type: Patient Choice Letter Notice Delivered To: Patient Relationship to Patient: Chemistry Technician Name: Delivery Method: HAND - Hand Delivered Shy Days: Prior Verbal Notification: Recipient Understood Notice: Yes Recipient Signature: Yes Med Rec Note Co-signed by Attending: Coverage Notice Comment: [facility] Reviewer: [id number] John Pina Notice Issued Date-Time: 02/16/2020 11:44 Notice Type: IM Discharge Notice Notice Delivered To: Patient Relationship to Patient: Chemistry Technician Name: Delivery Method: HAND - Hand Delivered Shy Days: Prior Verbal Notification: Recipient Understood Notice: Yes Recipient Signature: Yes Med Rec Note Co-signed by Attending: Coverage Notice Comment: Last DP export: 02/16/20 10:42 a Patient Name: GINGER BENSON Page [id number] at 1156 All edits/amendments must be made on the electronic document DICTATION DATE: 02/16/20 1156 BUCKLE FRAME SHAPER: YANN 02/16/20 1156 RPT#: [id number] DC DATE: STATUS: ADM IN [facility] [address] [place] [address] END OF REPORT
[2020-02-16 12:00] VITALS: BP 163/85
[2020-02-16] MEDS ORDERED: Senokot-S Tablet PO (12:47)
[2020-02-16] MEDS ORDERED: DURAGESIC1 PATCH .7 TRANSDERM (12:47)
--- NOTE | 2020-02-16 13:00 | MORECARE ---
CASE MANAGEMENT DISCHARGE SUMMARY PATIENT: GINGER BENSON UNIT: [id number] ADM DATE: 02/07/20 AGE: 85 : 33 SEX: F ROOM/BED: D.2239 AUTHOR: ARNOLD INIGUEZ PHYSICIAN: REFERRING PHYSICIAN: SAHARA LOVE MD DATE OF SERVICE: 02/16/20 Discharge Plan Patient Name: GINGER BENSON Facility: [facility]:[place] : 1935 Planned Disposition: Inpatient Rehab Anticipated Discharge Date: Discharge Date: Expected LOS: Initial Reviewer: [id number] Initial Review Date: 02/13/2020 Generated: 02/16/20 1:59 pm Comments DCP- Discharge Planning Updated by [id number]: Coreen Pina on 02/16/20 10:[address] Patient Name: GINGER BENSON Admission Status: ER Accout number: [id number] Admission Date: 02-07-2020 : 1935 Admission Diagnosis:DORSALGIA, UNSPECIFIED Attending: SAHARA LOVE Current LOS: 9 Anticipated DC Date: Planned Disposition: Inpatient Rehab Primary Insurance: [employer] ADV Discharge Planning Comments: CM SPOKE WITH GINNA KHAN AND HE STATES WOULD LIKE MOM TO COME HOME WITH HH AND TRY TO GET SURGERY SCHEDULED FOR NEXT WEEK WITH DR. GOMES. CM TO FOLLOW AND ASSIST. Compliance Engineer Products: Coreen Pina Appended by Coreen Pina on 02/16/2020 11:52 CDT: STEVE FOR [facility] AND IMM SIGNED. DCP- Discharge Planning Updated by [id number]: Coreen Pina on 02/14/20 3:[address] Patient Name: GINGER BENSON Admission Status: ER Accout number: [id number] Admission Date: 02-07-2020 : 1935 Admission Diagnosis:DORSALGIA, UNSPECIFIED Attending: SAHARA LOVE Current LOS: 7 Anticipated DC Date: Planned Disposition: Inpatient Rehab Primary Insurance: [employer] ADV Discharge Planning Comments: [facility] WAITING INSURANCE AUTH. I SPOKE TO PATIENT GINNA KHAN AND UPDATED HIM ON WHATS GOING ON. Compliance Engineer Products: Coreen Pina DCP- Discharge Planning Updated by [id number]: Coreen Pina on 02/13/20 12:[address] Patient Name: GINGER BENSON Admission Status: ER Accout number: [id number] Admission Date: 02-07-2020 : 1935 Admission Diagnosis:DORSALGIA, UNSPECIFIED Attending: SAHARA LOVE Current LOS: 6 Anticipated DC Date: Planned Disposition: Inpatient Rehab [facility] Discharge Planning Comments: CM met with patient at bedside after explaining CM role and obtaining verbal consent. CM discussed availability / needs of home health, REHAB and medical equipment. STEVE SIGNED FOR [facility] AND IMM SIGNED. CM TO FOLLOW AND ASSIST NEEDED. Compliance Engineer Products: Coreen Pina DCPIA - Discharge Planning Initial Assessment Updated by [id number]: Coreen Pina on 02/13/20 1:31 pm * Is the patient Alert and Oriented? Yes External Providers [facility] Next Contact Date: Service Request Date: Service Type: Resolution: Reviewer: Comments: Coverage Notice Reviewer: [id number] Pina Notice Issued Date-Time: 02/13/2020 13:32 Notice Type: IM Discharge Notice Notice Delivered To: Patient Relationship to Patient: Machine Maintenance Name: Delivery Method: HAND - Hand Delivered Shy Days: Prior Verbal Notification: Recipient Understood Notice: Yes Recipient Signature: Yes Med Rec Note Co-signed by Attending: Coverage Notice Comment: Reviewer: [id number] Pina Notice Issued Date-Time: 02/13/2020 13:32 Notice Type: Patient Choice Letter Notice Delivered To: Patient Relationship to Patient: Machine Maintenance Name: Delivery Method: HAND - Hand Delivered Shy Days: Prior Verbal Notification: Recipient Understood Notice: Yes Recipient Signature: Yes Med Rec Note Co-signed by Attending: Coverage Notice Comment: [facility] Reviewer: [id number] John Pina Notice Issued Date-Time: 02/16/2020 11:44 Notice Type: IM Discharge Notice Notice Delivered To: Patient Relationship to Patient: Machine Maintenance Name: Delivery Method: HAND - Hand Delivered Shy Days: Prior Verbal Notification: Recipient Understood Notice: Yes Recipient Signature: Yes Med Rec Note Co-signed by Attending: Coverage Notice Comment: Last DP export: 02/16/20 10:56 a Patient Name: GINGER BENSON Page [id number] at 1300 All edits/amendments must be made on the electronic document DICTATION DATE: 02/16/201258 MEDICAL LEGAL INVESTIGATOR: YANN 02/16/201258 RPT#: [id number] DC DATE: STATUS: ADM IN [facility] [address] [place] [address] END OF REPORT
--- NOTE | 2020-02-16 13:19 | MORECARE ---
CASE MANAGEMENT DISCHARGE SUMMARY PATIENT: GINGER BENSON UNIT: [id number] ADM DATE: 02/07/20 AGE: 85 : 33 SEX: F ROOM/BED: D.2239 AUTHOR: ARNOLD INIGUEZ PHYSICIAN: REFERRING PHYSICIAN: SAHARA LOVE MD DATE OF SERVICE: 02/16/20 Discharge Plan Patient Name: GINGER BENSON Facility: [facility]:[place] : 1935 Planned Disposition: Inpatient Rehab Anticipated Discharge Date: Discharge Date: Expected LOS: Initial Reviewer: [id number] Initial Review Date: 02/13/2020 Generated: 02/16/20 2:19 pm Comments DCP- Discharge Planning Updated by [id number]: Coreen Pina on 02/16/20 10:[address] Patient Name: GINGER BENSON Admission Status: ER Accout number: [id number] Admission Date: 02-07-2020 : 1935 Admission Diagnosis:DORSALGIA, UNSPECIFIED Attending: SAHARA LOVE Current LOS: 9 Anticipated DC Date: Planned Disposition: Inpatient Rehab Primary Insurance: [employer] ADV Discharge Planning Comments: CM SPOKE WITH GINNA KHAN AND HE STATES WOULD LIKE MOM TO COME HOME WITH HH AND TRY TO GET SURGERY SCHEDULED FOR NEXT WEEK WITH DR. GOMES. CM TO FOLLOW AND ASSIST. Client Application Support Engineer: Coreen Pina Appended by Coreen Pina on 02/16/2020 11:52 CDT: STEVE FOR [facility] AND IMM SIGNED. DCP- Discharge Planning Updated by [id number]: Coreen Pina on 02/14/20 3:[address] Patient Name: GINGER BENSON Admission Status: ER Accout number: [id number] Admission Date: 02-07-2020 : 1935 Admission Diagnosis:DORSALGIA, UNSPECIFIED Attending: SAHARA LOVE Current LOS: 7 Anticipated DC Date: Planned Disposition: Inpatient Rehab Primary Insurance: [employer] ADV Discharge Planning Comments: [facility] WAITING INSURANCE AUTH. I SPOKE TO PATIENT GINNA KHAN AND UPDATED HIM ON WHATS GOING ON. Client Application Support Engineer: Coreen Pina DCP- Discharge Planning Updated by [email or web address]: Coreen Pina on 02/13/20 12:[address] Patient Name: GINGER BENSON Admission Status: ER Accout number: [id number] Admission Date: 02-07-2020 : 1935 Admission Diagnosis:DORSALGIA, UNSPECIFIED Attending: SAHARA LOVE Current LOS: 6 Anticipated DC Date: Planned Disposition: Inpatient Rehab [facility] Discharge Planning Comments: CM met with patient at bedside after explaining CM role and obtaining verbal consent. CM discussed availability / needs of home health, REHAB and medical equipment. STEVE SIGNED FOR [facility] AND IMM SIGNED. CM TO FOLLOW AND ASSIST NEEDED. Client Application Support Engineer: Coreen Pina DCPIA - Discharge Planning Initial Assessment Updated by [id number]: Coreen Pina on 02/13/20 1:31 pm * Is the patient Alert and Oriented? Yes External Providers External Provider: [facility] Next Contact Date: Service Request Date: Service Type: Resolution: Reviewer: Comments: Coverage Notice Reviewer: [id number] Pina Notice Issued Date-Time: 02/13/2020 13:32 Notice Type: Patient Choice Letter Notice Delivered To: Patient Relationship to Patient: Home Health Travel Pt Name: Delivery Method: HAND - Hand Delivered Shy Days: Prior Verbal Notification: Recipient Understood Notice: Yes Recipient Signature: Yes Med Rec Note Co-signed by Attending: Coverage Notice Comment: [facility] Reviewer: [id number] Pina Notice Issued Date-Time: 02/16/2020 11:44 Notice Type: IM Discharge Notice Notice Delivered To: Patient Relationship to Patient: Home Health Travel Pt Name: Delivery Method: HAND - Hand Delivered Shy Days: Prior Verbal Notification: Recipient Understood Notice: Yes Recipient Signature: Yes Med Rec Note Co-signed by Attending: Coverage Notice Comment: Reviewer: [id number] John Pina Notice Issued Date-Time: 02/13/2020 13:32 Notice Type: IM Discharge Notice Notice Delivered To: Patient Relationship to Patient: Home Health Travel Pt Name: Delivery Method: HAND - Hand Delivered Shy Days: Prior Verbal Notification: Recipient Understood Notice: Yes Recipient Signature: Yes Med Rec Note Co-signed by Attending: Coverage Notice Comment: Last DP export: 02/16/20 12:00 p Patient Name: GINGER BENSON Page 00364 at 1319 All edits/amendments must be made on the electronic document DICTATION DATE: 02/16/201318 UNIT ASSISTANT: YANN 02/16/201318 RPT#: [id number] DC DATE: STATUS: ADM IN [facility] [address] [place] [address] END OF REPORT
--- NOTE | 2020-02-16 13:28 | MORECARE ---
CASE MANAGEMENT DISCHARGE SUMMARY PATIENT: GINGER BENSON UNIT: [id number] ADM DATE: 02/07/20 AGE: 85 : 33 SEX: F ROOM/BED: D.2239 AUTHOR: HIRA,DOC PHYSICIAN: REFERRING PHYSICIAN: SAHARA LOVE MD DATE OF SERVICE: 02/16/20 Discharge Plan Patient Name: GINGER BENSON Facility: [facility]:[place] : 1935 Planned Disposition: Inpatient Rehab Anticipated Discharge Date: Discharge Date: Expected LOS: Initial Reviewer: [id number] Initial Review Date: 02/13/2020 Generated: 02/16/20 2:28 pm Comments DCP- Discharge Planning Updated by [id number]: Coreen Pina on 02/16/20 12:[address] Patient Name: GINGER BENSON Admission Status: ER Accout number: [id number] Admission Date: 02-07-2020 : 1935 Admission Diagnosis:DORSALGIA, UNSPECIFIED Attending: SAHARA LOVE Current LOS: 9 Anticipated DC Date: Planned Disposition: Inpatient Rehab Primary Insurance: [employer] ADV Discharge Planning Comments: I SPOKE WITH SON AGAIN, HE WANTS HIS MOM TO GO TO [facility]. I FAXED REFERRAL OVER. IT MAY TAKE SEVERAL DAYS FOR PREAUTH PER SNF. CM TO FOLLOW AND ASSIST. Integrity Manager: Coreen Pina DCP- Discharge Planning Updated by [id number]: Coreen Pina on 02/16/20 10:[address] Patient Name: GINGER BENSON Admission Status: ER Accout number: [id number] Admission Date: 02-07-2020 : 1935 Admission Diagnosis:DORSALGIA, UNSPECIFIED Attending: SAHARA LOVE Current LOS: 9 Anticipated DC Date: Planned Disposition: Inpatient Rehab Primary Insurance: [employer] ADV Discharge Planning Comments: CM SPOKE WITH SON ERIN AND HE STATES WOULD LIKE MOM TO COME HOME WITH HH AND TRY TO GET SURGERY SCHEDULED FOR NEXT WEEK WITH DR. GOMES. CM TO FOLLOW AND ASSIST. Integrity Manager: Coreen Pina Appended by Coreen Pina on 02/16/2020 11:52 CDT: STEVE FOR [facility] AND IMM SIGNED. DCP- Discharge Planning Updated by [email or web address]: Coreen Pina on 02/14/20 3:[address] Patient Name: GINGER BENSON Admission Status: ER Accout number: [id number] Admission Date: 02-07-2020 : 1935 Admission Diagnosis:DORSALGIA, UNSPECIFIED Attending: SAHARA LOVE Current LOS: 7 Anticipated DC Date: Planned Disposition: Inpatient Rehab Primary Insurance: [employer] ADV Discharge Planning Comments: [facility] WAITING INSURANCE AUTH. I SPOKE TO PATIENT SON ERIN AND UPDATED HIM ON WHATS GOING ON. Integrity Manager: Coreen Pina DCP- Discharge Planning Updated by [id number]: Coreen Pina on 02/13/20 12:[address] Patient Name: GINGER BENSON Admission Status: ER Accout number: [id number] Admission Date: 02-07-2020 : 1935 Admission Diagnosis:DORSALGIA, UNSPECIFIED Attending: SAHARA LOVE Current LOS: 6 Anticipated DC Date: Planned Disposition: Inpatient Rehab Primary Insurance: [employer] ADV Discharge Planning Comments: CM met with patient at bedside after explaining CM role and obtaining verbal consent. CM discussed availability / needs of home health, REHAB and medical equipment. STEVE SIGNED FOR [facility] AND IMM SIGNED. CM TO FOLLOW AND ASSIST NEEDED. Integrity Manager: Coreen Pina DCPIA - Discharge Planning Initial Assessment Updated by [email or web address]: Coreen Pina on 02/13/20 1:31 pm * Is the patient Alert and Oriented? Yes Coverage Notice Reviewer: [id number] John Pina Notice Issued Date-Time: 02/13/2020 13:32 Notice Type: Patient Choice Letter Notice Delivered To: Patient Relationship to Patient: Staking Press Operator Name: Delivery Method: HAND - Hand Delivered Shy Days: Prior Verbal Notification: Recipient Understood Notice: Yes Recipient Signature: Yes Med Rec Note Co-signed by Attending: Coverage Notice Comment: [facility] Reviewer: [id number] John Pina Notice Issued Date-Time: 02/16/2020 11:44 Notice Type: IM Discharge Notice Notice Delivered To: Patient Relationship to Patient: Staking Press Operator Name: Delivery Method: HAND - Hand Delivered Shy Days: Prior Verbal Notification: Recipient Understood Notice: Yes Recipient Signature: Yes Med Rec Note Co-signed by Attending: Coverage Notice Comment: Reviewer: [id number] John Pina Notice Issued Date-Time: 02/13/2020 13:32 Notice Type: IM Discharge Notice Notice Delivered To: Patient Relationship to Patient: Staking Press Operator Name: Delivery Method: HAND - Hand Delivered Shy Days: Prior Verbal Notification: Recipient Understood Notice: Yes Recipient Signature: Yes Med Rec Note Co-signed by Attending: Coverage Notice Comment: Last DP export: 02/16/20 12:19 p Patient Name: GINGER BENSON Page [phone] at 1328 All edits/amendments must be made on the electronic document DICTATION DATE: 02/16/20 1328 NOZZLE OPERATOR: YANN 02/16/20 1328 RPT#: [id number] DC DATE: STATUS: ADM IN [facility] [address] [place] [address] END OF REPORT
--- NOTE | 2020-02-16 19:30 | NUR ---
PT SITTING UP IN BED WITHOUT DISTRESS, ALERT AND ORIENTED. READING BOOK. DENIES NEEDS AT THIS TIME. CL IN REACH, WILL CTM
[2020-02-16 20:00] VITALS: BP 168/83
[2020-02-17] VITALS: BP 168/70
[2020-02-17 04:00] VITALS: BP 167/80
[2020-02-17 05:29] LABS: BASOPHILS 0.4 % (0-2); EOSINOPHILS 1.3 % (0-7); HEMATOCRIT 36.6 % (36.0-48.0); HEMOGLOBIN 12.1 g/dL (12-16); IMMATURE GRANULOCYTES 0.3 % (0-5); LYMPHOCYTES 16.3 % (15-50); MCH 30.1 pg (26.0-34.0); MCHC 33.1 g/dL (31.0-37.0); MEAN PLATELET VOLUME 9.7 fL (7.4-10.4); MONOCYTES 8.8 % (2-11); NEUTROPHILS 72.9 % (40-80); PLATELET COUNT 268 10x3/uL (130-400); RBC 4.02 10x6/uL (4.00-5.40); RDW 13.5 % (11.5-14.5); WBC 6.8 10x3/uL (4.8-10.8)
[2020-02-17 05:47] LABS: ALBUMIN 2.9 g/dL (3.4-5.0); ANION GAP 9.5 mmol/L (8-16); BILIRUBIN - TOTAL 0.55 mg/dL (0.2-1.3); CALCIUM 8.4 mg/dL (8.5-10.1); CARBON DIOXIDE 27.7 mmol/L (21.0-32.0); POTASSIUM - SERUM 3.2 mmol/L (3.5-5.1)
[2020-02-17 08:00] VITALS: BP 109/80
[2020-02-17 12:00] VITALS: BP 110/76
--- NOTE | 2020-02-17 16:41 | NUR ---
OT NOTE: UPON ENTERING ROOM, PT WAS SEATED ON TOILET. PT REQUIRED CGA FOR ADL MOB . PT REQUIRED TOTAL A WITH BACK BRACE. PT COMPLETED HYGIENE TASKS WITH SET UP. PT COMPLETED EOB SITTING WITH SBA. PT EDUCATED ON THE USE OF CALL LIGHT. [phone] THANK YOU,VIVIANE LAI
--- NOTE | 2020-02-17 16:47 | MORECARE ---
CASE MANAGEMENT DISCHARGE SUMMARY PATIENT: GINGER BENSON UNIT: [id number] ADM DATE: 02/07/20 AGE: 85 : 33 SEX: F ROOM/BED: D.2239 AUTHOR: HIRADOC PHYSICIAN: REFERRING PHYSICIAN: SAHARA LOVE MD DATE OF SERVICE: 02/17/20 Discharge Plan Patient Name: GINGER BENSON Facility: [facility]:[place] : 1935 Planned Disposition: Inpatient Rehab Anticipated Discharge Date: Discharge Date: Expected LOS: Initial Reviewer: [id number] Initial Review Date: 02/13/2020 Generated: 02/17/20 5:46 pm Comments DCP- Discharge Planning Updated by [id number]: Coreen Pina on 02/17/20 3:[address] Patient Name: GINGER BENSON Admission Status: ER Accout number: [id number] Admission Date: 02-07-2020 : 1935 Admission Diagnosis:DORSALGIA, UNSPECIFIED Attending: SAHARA LOVE Current LOS: 10 Anticipated DC Date: Planned Disposition: Inpatient Rehab Primary Insurance: [employer] MEDICARE ADV Discharge Planning Comments: JUST GOT RESULTS OF COVID TEST. NEGATIVE. FAXED RESULTS TO [facility]. WAITING FOR CALL TO SEE IF THEY ARE ACCEPTING PATIENT TODAY OR IF IT WILL BE TOMORROW. RN CAN CALL REPORT TO [phone] WHEN PATIENT IS ACCEPTED. Health Insurance Adjuster: Coreen Pina Appended by Coreen Pina on 02/17/2020 16:43 CDT: [facility] TO ACCEPT NOW. [facility] TO TRANSPORT. RN TO CALL REPORT. DCP- Discharge Planning Updated by [id number]: Coreen Pina on 02/16/20 12:[address] Patient Name: GINGER BENSON Admission Status: ER Accout number: [id number] Admission Date: 02-07-2020 : 1935 Admission Diagnosis:DORSALGIA, UNSPECIFIED Attending: SAHARA LOVE Current LOS: 9 Anticipated DC Date: Planned Disposition: Inpatient Rehab Primary Insurance: [employer] MEDICARE ADV Discharge Planning Comments: I SPOKE WITH SON AGAIN, HE WANTS HIS MOM TO GO TO [facility]. I FAXED REFERRAL OVER. IT MAY TAKE SEVERAL DAYS FOR PREAUTH PER SNF. CM TO FOLLOW AND ASSIST. Health Insurance Adjuster: Coreen Pina DCP- Discharge Planning Updated by [id number]: Coreen Pina on 02/16/20 10:[address] Patient Name: GINGER BENSON Admission Status: ER Accout number: [id number] Admission Date: 02-07-2020 : 1935 Admission Diagnosis:DORSALGIA, UNSPECIFIED Attending: SAHARA LOVE Current LOS: 9 Anticipated DC Date: Planned Disposition: Inpatient Rehab Primary Insurance: [employer] MEDICARE ADV Discharge Planning Comments: CM SPOKE WITH GINNA KHAN AND HE STATES WOULD LIKE MOM TO COME HOME WITH AND TRY TO GET SURGERY SCHEDULED FOR NEXT WEEK WITH DR. GOMES. CM TO FOLLOW AND ASSIST. Health Insurance Adjuster: Coreen Pina Appended by Coreen Pina on 02/16/2020 11:52 CDT: [facility] FOR [facility] AND [facility] SIGNED. DCP- Discharge Planning Updated by [id number]: Coreen Pina on 02/14/20 3:[address] Patient Name: GINGER BENSON Admission Status: ER Accout number: [id number] Admission Date: 02-07-2020 : 1935 Admission Diagnosis:DORSALGIA, UNSPECIFIED Attending: SAHARA LOVE Current LOS: 7 Anticipated DC Date: Planned Disposition: Inpatient Rehab Primary Insurance: [employer] MEDICARE ADV Discharge Planning Comments: [facility] WAITING INSURANCE AUTH. I SPOKE TO PATIENT GINNA KHAN AND UPDATED HIM ON WHATS GOING ON. Health Insurance Adjuster: Coreen Pina DCP- Discharge Planning Updated by [id number]: Coreen Pina on 02/13/20 12:[address] Patient Name: GINGER BENSNO Admission Status: ER Accout number: [id number] Admission Date: 02-07-2020 : 1935 Admission Diagnosis:DORSALGIA, UNSPECIFIED Attending: SAHARA LOVE Current LOS: 6 Anticipated DC Date: Planned Disposition: Inpatient Rehab Primary Insurance: [employer] MEDICARE ADV Discharge Planning Comments: CM met with patient at bedside after explaining CM role and obtaining verbal consent. CM discussed availability / needs of home health, REHAB and medical equipment. STEVE SIGNED FOR [facility] AND [facility]MM SIGNED. CM TO FOLLOW AND ASSIST NEEDED. Health Insurance Adjuster: Coreen Pina DCPIA - Discharge Planning Initial Assessment Updated by [id number]: Coreen Pina on 02/13/20 1:31 pm * Is the patient Alert and Oriented? Yes Coverage Notice Reviewer: [id number] Pina Notice Issued Date-Time: 02/13/2020 13:32 Notice Type: IM Discharge Notice Notice Delivered To: Patient Relationship to Patient: Kiln Packer Name: Delivery Method: HAND - Hand Delivered Shy Days: Prior Verbal Notification: Recipient Understood Notice: Yes Recipient Signature: Yes Med Rec Note Co-signed by Attending: Coverage Notice Comment: Reviewer: [id number] Pina Notice Issued Date-Time: 02/13/2020 13:32 Notice Type: Patient Choice Letter Notice Delivered To: Patient Relationship to Patient: Kiln Packer Name: Delivery Method: HAND - Hand Delivered Shy Days: Prior Verbal Notification: Recipient Understood Notice: Yes Recipient Signature: Yes Med Rec Note Co-signed by Attending: Coverage Notice Comment: [facility] Reviewer: [id number] John Pina Notice Issued Date-Time: 02/16/2020 11:44 Notice Type: IM Discharge Notice Notice Delivered To: Patient Relationship to Patient: Kiln Packer Name: Delivery Method: HAND - Hand Delivered Shy Days: Prior Verbal Notification: Recipient Understood Notice: Yes Recipient Signature: Yes Med Rec Note Co-signed by Attending: Coverage Notice Comment: Last DP export: 02/16/20 12:28 p Patient Name: GINGER BENSON Page [id number] at 1647 All edits/amendments must be made on the electronic document DICTATION DATE: 02/17/201645 CHARGE AUDITOR: YANN 02/17/201645 RPT#: [id number] DC DATE: STATUS: ADM IN [facility] [address] [place] [address] END OF REPORT
--- NOTE | 2020-02-17 17:44 | NUR ---
IV DISCONTINUED AND VERBALIZED UNDERSTANDING OF DISCHARGE MEDICATIONS. [facility] HERE FOR TRANSPORT WITH REPORT GIVEN. ATTEMPTED X2 TO CALL REPORT TO [facility]. INSTRUCTED AMBULANCE STAFF TO CALL IF HAVE ANY QUESTIONS WITH VERBAL ACHNOLEDGEMENT NOTED.PATIENT STABLE AT TIME OF DISCHARGE AND APPRECIATIVE OF CARE RECEIVED.
--- NOTE | 2020-02-20 08:17 | MORECARE ---
CASE MANAGEMENT DISCHARGE SUMMARY PATIENT: GINGER BESNON UNIT: [id number] ADM DATE: 02/07/20 AGE: 85 : 33 SEX: F ROOM/BED: D.2239 AUTHOR: HIRADOC PHYSICIAN: REFERRING PHYSICIAN: SAHARA LOVE MD DATE OF SERVICE: 02/20/20 Discharge Plan Patient Name: GINGER BENSON Facility: [facility]:[place] : 1935 Planned Disposition: Inpatient Rehab Anticipated Discharge Date: Discharge Date: 02/17/2020 Expected LOS: Initial Reviewer: [id number] Initial Review Date: 02/13/2020 Generated: 02/20/20 9:16 am Comments DCP- Discharge Planning Updated by [id number]: Coreen Pina on 02/17/20 3:[address] Patient Name: GINGER BENSON Admission Status: ER Accout number: [id number] Admission Date: 02-07-2020 : 1935 Admission Diagnosis:DORSALGIA, UNSPECIFIED Attending: SAHARA LOVE Current LOS: 10 Anticipated DC Date: Planned Disposition: Inpatient Rehab Primary Insurance: [employer] ADV Discharge Planning Comments: JUST GOT RESULTS OF COVID TEST. NEGATIVE. FAXED RESULTS TO [facility]. WAITING FOR CALL TO SEE IF THEY ARE ACCEPTING PATIENT TODAY OR IF IT WILL BE TOMORROW. RN CAN CALL REPORT TO [phone] WHEN PATIENT IS ACCEPTED. Candy Polisher: Coreen Pina Appended by Coreen Pina on 02/17/2020 16:43 CDT: [facility] TO ACCEPT NOW. [facility] TO TRANSPORT. RN TO CALL REPORT. DCP- Discharge Planning Updated by [id number]: Coreen Pina on 02/16/20 12:[address] Patient Name: GINGER BENSON Admission Status: ER Accout number: [id number] Admission Date: 02-07-2020 : 1935 Admission Diagnosis:DORSALGIA, UNSPECIFIED Attending: SAHARA LOVE Current LOS: 9 Anticipated DC Date: Planned Disposition: Inpatient Rehab Primary Insurance: [employer]ICARE ADV Discharge Planning Comments: I SPOKE WITH SON AGAIN, HE WANTS HIS MOM TO GO TO [facility]. I FAXED REFERRAL OVER. IT MAY TAKE SEVERAL DAYS FOR PREAUTH PER SNF. CM TO FOLLOW AND ASSIST. Candy Polisher: Coreen Pina DCP- Discharge Planning Updated by [id number]: Coreen Pina on 02/16/20 10:[address] Patient Name: GINGER BENSON Admission Status: ER Accout number: [id number] Admission Date: 02-07-2020 : 1935 Admission Diagnosis:DORSALGIA, UNSPECIFIED Attending: SAHARA LOVE Current LOS: 9 Anticipated DC Date: Planned Disposition: Inpatient Rehab Primary Insurance: [employer] MEDICARE ADV Discharge Planning Comments: CM SPOKE WITH GINNA KHAN AND HE STATES WOULD LIKE MOM TO COME HOME WITH AND TRY TO GET SURGERY SCHEDULED FOR NEXT WEEK WITH DR. GOMES. CM TO FOLLOW AND ASSIST. Candy Polisher: Coreen Pina Appended by Coreen Pina on 02/16/2020 11:52 CDT: [facility]EVE FOR [facility] AND IMM SIGNED. DCP- Discharge Planning Updated by [id number]: Coreen Pina on 02/14/20 3:[address] Patient Name: GINGER BENSON Admission Status: ER Accout number: [id number] Admission Date: 02-07-2020 : 1935 Admission Diagnosis:DORSALGIA, UNSPECIFIED Attending: SAHARA LOVE Current LOS: 7 Anticipated DC Date: Planned Disposition: Inpatient Rehab Primary Insurance: [employer] MEDICARE ADV Discharge Planning Comments: [facility] WAITING INSURANCE AUTH. I SPOKE TO PATIENT GINNA KHAN AND UPDATED HIM ON WHATS GOING ON. Candy Polisher: Coreen Pina DCP- Discharge Planning Updated by [id number]: Coreen Pina on 02/13/20 12:[address] Patient Name: GINGER BENSON Admission Status: ER Accout number: [id number] Admission Date: 02-07-2020 : 1935 Admission Diagnosis:DORSALGIA, UNSPECIFIED Attending: SAHARA LOVE Current LOS: 6 Anticipated DC Date: Planned Disposition: Inpatient Rehab Primary Insurance: [employer]ARE ADV Discharge Planning Comments: CM met with patient at bedside after explaining CM role and obtaining verbal consent. CM discussed availability / needs of home health, REHAB and medical equipment. STEVE SIGNED FOR [facility] AND [facility]MM SIGNED. CM TO FOLLOW AND ASSIST NEEDED. Candy Polisher: Coreencrow Pina DCPIA - Discharge Planning Initial Assessment Updated by [id number]: Coreen Pina on 02/13/20 1:31 pm * Is the patient Alert and Oriented? Yes Coverage Notice Reviewer: [id number] Pina Notice Issued Date-Time: 02/13/2020 13:32 Notice Type: IM Discharge Notice Notice Delivered To: Patient Relationship to Patient: Cotton Farmer Name: Delivery Method: HAND - Hand Delivered Shy Days: Prior Verbal Notification: Recipient Understood Notice: Yes Recipient Signature: Yes Med Rec Note Co-signed by Attending: Coverage Notice Comment: Reviewer: [id number] John Pina Notice Issued Date-Time: 02/13/2020 13:32 Notice Type: Patient Choice Letter Notice Delivered To: Patient Relationship to Patient: Cotton Farmer Name: Delivery Method: HAND - Hand Delivered Shy Days: Prior Verbal Notification: Recipient Understood Notice: Yes Recipient Signature: Yes Med Rec Note Co-signed by Attending: Coverage Notice Comment: [facility] Reviewer: [id number] John Pina Notice Issued Date-Time: 02/16/2020 11:44 Notice Type: IM Discharge Notice Notice Delivered To: Patient Relationship to Patient: Cotton Farmer Name: Delivery Method: HAND - Hand Delivered Shy Days: Prior Verbal Notification: Recipient Understood Notice: Yes Recipient Signature: Yes Med Rec Note Co-signed by Attending: Coverage Notice Comment: Last DP export: 02/17/20 3:47 p Patient Name: GINGER BENSON Page [id number] at 0817 All edits/amendments must be made on the electronic document DICTATION DATE: 02/20/20816 TANK BUILDER AND ERECTOR: YANN 02/20/20816 RPT#: [id number] DC DATE:02/17/20 STATUS: DIS IN [facility] [address] [place] [address] END OF REPORT
== END 2020-02-17 17:48 | DRG 543 ==
LOC: D.ER 19:36 → D.MS 21:27
PROVIDERS: Family Medicine; ADMIT Internal Medicine Nephrology; ATTEND Internal Medicine Nephrology
DX: M48.54XA Collapsed vertebra, not elsewhere classified, thoracic region, initial encounter for fracture (principal); N17.9 Acute kidney failure, unspecified; E87.1 Hypo-osmolality and hyponatremia; M48.56XA Collapsed vertebra, not elsewhere classified, lumbar region, initial encounter for fracture; E87.6 Hypokalemia; E78.5 Hyperlipidemia, unspecified; K59.00 Constipation, unspecified; E55.9 Vitamin D deficiency, unspecified; M81.0 Age-related osteoporosis without current pathological fracture; E03.9 Hypothyroidism, unspecified; I10 Essential (primary) hypertension; F32.9 Major depressive disorder, single episode, unspecified